=== PATIENT | female | born 1975 | race Hispanic/Latino ===

== ENCOUNTER 2021-09-16 14:20 | Outpatient (AMB) | payer MEDICAID, SELFPAY | END 2021-09-16 15:24 | disposition home or self-care (01) | LOC: HODRTX 14:20 | PROVIDERS: PCP Internal Medicine; Referring Provider Internal Medicine; Visit Provider Internal Medicine | DX: G40.909 Epilepsy, unspecified, not intractable, without status epilepticus (principal) ==